=== PATIENT | male | born 1975 | race Two or more races ===

== ENCOUNTER 2025-02-09 19:27 | Emergency (ER) | payer MEDICAID, OTHER ==
[~2025-02-09] VITALS: Ht 170.2 cm; Wt 111.7 kg
[2025-02-09] MEDS ORDERED: DOXY100C4 PO (20:36)
[2025-02-09] MEDS ORDERED: IBUP-1456 PO (20:36)
--- NOTE | 2025-02-09 20:36 | ED.PDOC ---
History of Present Illness(SKN HPI Comments C/C of wound check to right knee. Pt states he was outside doing yardwork, and unsure if pt was bitten by spider or had injury by debris. Noted 3x3cm, circular abrasion. No odor, drainage. Skin WNL. VSS. NKDA. Chief Complaint: Wound Check Time Seen by MD: 19:31 History of Present Illness: Nurses Notes, Medications, Allergies Allergies: Coded Allergies: NO KNOWN ALLERGIES (Unverified , 02/09/25) Home Meds Active Scripts Ibuprofen (Ibuprofen) 800 Mg Tab, 800 MG PO Q8HP PRN for 3 Days, #9 TAB Prov:SUSI AVILEZK [employer] 02/09/25 Doxycycline Hyclate (Doxycycline Hyclate) 100 Mg Cap, 100 MG PO BID for 7 Days, #14 CAP Prov:FATMATACECY Lion [facility] 02/09/25 Information Source: Patient Mode of Arrival: Ambulatory Past Medical History PAST MEDICAL HISTORY: Denies Surgical History: Denies all surgeries Family History Family History: Unknown Social History Smoker: Non-Smoker Alcohol: Denies ETOH Use Drugs: Denies Drug Use Constitutional: denies: chills, diaphoresis, fatigue, fever, malaise, sweats, weakness, others EENTM: denies: blurred vision, double vision, ear bleeding, ear discharge, ear drainage, ear pain, ear ringing, eye pain, eye redness, hearing loss, mouth pain, mouth swelling, nasal discharge, nose bleeding, nose congestion, nose pain, photophobia, tearing, throat pain, throat swelling, voice changes, others Respiratory: denies: cough, hemoptysis, orthopnea, SOB at rest, shortness of breath, SOB with excertion, stridor, wheezing, others Cardiovascular: denies: chest pain, dizzy spells, diaphoresis, Dyspnea on exertion, edema, irregular heart beat, left arm pain, lightheadedness, palpitations, PND, syncope, others Gastrointestinal: denies: abdomen distended, abdominal pain, blood streaked bowels, constipated, diarrhea, dysphagia, difficulty swallowing, hematemesis, melena, nausea, poor appetite, poor fluid intake, rectal bleeding, rectal pain, vomiting, others Genitourinary: denies: burning, dysuria, flank pain, frequency, hematuria, incontinence, penile discharge, penile sore, pain, testicle pain, testicle swelling, urgency, others Neurological: denies: dizziness, fainting, headache, left sided numbness, left sided weakness, numbness, paresthesia, pre-existing deficit, right sided numbness, right sided weakness, seizure, speech problems, tingling, tremors, weakness, others Integumetry: reports: wounds (RIGHT KNEE OVER KNEECAP); denies: bruises, change in color, change in hair/nails, dryness, laceration, lesions, lumps, rash, others Allergic/Immunocompromised: denies: Difficulty Healing, Frequent Infections, Hives, Itching, others Hematologic/Lymphatic: denies: anemia, blood clots, easy bleeding, easy bruising, swollen glands, others Endocrine: denies: excessive hunger, excessive sweating, excessive thirst, excessive urination, flushing, intolerance to cold, intolerance to heat, unexplained weight gain, unexplained weight loss, others Psychiatric: denies: anxiety, bipolar disorder, depression, hopeless, panic disorder, schizophrenia, sleepless, suicidal, others Physical Exam General Appearance: No Apparent Distress, Normal HEENT: Pharynx Normal Neck: Full Range of Motion, Non-Tender Respiratory: Lungs Clear, No Respiratory Distress, Normal Breath Sounds Cardiovascular: No Murmur, Normal Peripheral Pulses, Regular Rate/Rhythm Breast Exam: Deferred Gastrointestinal: No Organomegaly, Non Tender, No Pulsatile Mass, Normal Bowel Sounds, Soft Genitalia: Deferred Pelvic: Deferred Rectal: Deferred Extremities: Normal capillary refill, Normal inspection, Normal range of motio n, Non-tender, No pedal edema Musculoskeletal : Apperance: Normal Neurologic: Alert, sorter/assay tech II-XII nml as Tested, No Motor Deficits, Normal Affect, Normal Mood, No Sensory Deficits Cerebellar Function: Normal Reflexes: Normal Skin: Dry, Normal Color, Warm, Wounds (3x3cm, circular, INDURATED PATIENT WITH A CENTERED PUNCTURED WOUND SCABBED OVER AND SURROUNDING ERYTHEMA WITHOUT STREAKING OR NOTED DRAINAGE) Lymphatic: No Adenopathy Was a procedure done? Was a procedure done?: No Differential Diagnosis (INTG) Differential Diagnosis: Abrasion, Cellulitis, Insect Envenomation, Puncture Wound Differential Diagnosis: Abscess X-Ray, Labs, Meds, VS Vital Signs Date Time Temp Pulse Resp B/P (MAP) Pulse Ox O2 Delivery O2 Flow Rate FiO2 4/25/25 21:07 73 16 96 Room Air 02/09/25 20:40 98.3 73 16 131/84 (100) 96 98.3 02/09/25 20:23 98.1 72 18 146/87 (106) 96 98.1 Current Medications Medications (Trade) Dose Ordered Sig/Justo Route Start Time Stop Time Status Last Admin Ceftriaxone Sodium (Rocephin) 1,000 mg ONCE ONCE IM 02/09/25 20:30 02/09/25 20:31 DC 02/09/25 20:59 Acetaminophen/ Hydrocodone Bitart ([place] 5/325MG Tab) 1 tab ONCE ONCE PO 02/09/25 20:30 02/09/25 20:31 DC 02/09/25 20:58 X-Ray, Labs, Meds, VS Comment Patient given Rocephin 1 g IM. Script ibuprofen and doxycycline x7 days advised to take as prescribed side effects discussed. Advised to follow up in 2 days for wound re-evaluation either here in the ER, urgent care or at his primary care doctors. ER return precautions given patient indicates understanding agrees with discharge plan of care. Time of 1ST Reevaluation: 20:15 Reevaluation 1ST: Unchanged Patient Education/Counseling: Diagnosis, Treatment, Prognosis, Need For Follow Up Family Education/Counseling: Diagnosis, Treatment, Prognosis, Need For Follow Up Departure 1 Departure Time of Disposition: 21:20 Impression: Primary Impression: Bug bite with infection Qualified Codes: W57.XXXA - Bitten or stung by nonvenomous insect and other nonvenomous arthropods, initial encounter Disposition: HOME / SELF CARE / HOMELESS Condition: Stable e-Prescriptions Ibuprofen (Ibuprofen) 800 Mg Tab 800 MG PO Q8HP PRN for 3 Days, #9 TAB Prov: CECY AVILEZ 02/09/25 Doxycycline Hyclate (Doxycycline Hyclate) 100 Mg Cap 100 MG PO BID for 7 Days, #14 CAP Prov: CECY AVILEZ 02/09/25 Discharged With: Spouse Critical Care Note Critical Care Time?: No Stability Stability form required: No CECY AVILEZ Feb 09, 2025 20:36
[2025-02-09 20:40] VITALS: BP 131/84; TEMP 98.3
[2025-02-09] MEDS: HYDROcodone-ACET 5/325MG TAB PO ONE (20:58)
[2025-02-09] MEDS: cefTRIAXone SOD 1,000 MG VL IM ONE (20:59)
[2025-02-09 21:07] VITALS: PULSE 73; RESP 16; O2SAT 96
== END 2025-02-09 21:25 | disposition home or self-care (01) ==
LOC: ER 19:27
DX: S81.031A Puncture wound without foreign body, right knee, initial encounter (principal); L08.9 Local infection of the skin and subcutaneous tissue, unspecified; W57.XXXA Bitten or stung by nonvenomous insect and other nonvenomous arthropods, initial encounter; Y93.89 Activity, other specified; Y92.89 Other specified places as the place of occurrence of the external cause; Y99.8 Other external cause status
CPT/HCPCS: 96372; 99283; J0696